=== PATIENT | male | born 1960 | race Two or more races ===

== ENCOUNTER 2020-07-09 11:39 | Emergency (ER) | payer MEDICAID, OTHER ==
[~2020-07-09] VITALS: Ht 172.7 cm; Wt 108.9 kg
[2020-07-09] MEDS ORDERED: ACETAMINOPHEN 325 MG TAB PO ONE (12:00)
[2020-07-09 12:38] VITALS: BP 139/93
== END 2020-07-09 15:02 | disposition home or self-care (01) ==
LOC: ER 11:39
DX: U07.1 COVID-19 (principal); M54.9 Dorsalgia, unspecified; R11.10 Vomiting, unspecified
CPT/HCPCS: 36415; 71046; 87426